=== PATIENT | male | born 1960 | race American Indian/Alaskan Native ===

== ENCOUNTER 2016-11-25 00:25 | Emergency (ER) | payer BC ==
[2016-11-25 00:32] VITALS: BMI 36.9
[2016-11-25 00:38] VITALS: TEMP 99.1
[2016-11-25] MEDS ORDERED: Sodium Chloride 0.9% 1,000 ML IV STA (00:44)
[2016-11-25 01:01] LABS: ADD MANUAL DIFF? NO
--- NOTE | 2016-11-25 01:03 | ED PDOC ---
Arrival/HPI - General Chief Complaint: Dizziness/Lightheaded Time Seen by Provider: 11/25/16 00:35 Historian: Patient - History of Present Illness Narrative History of Present Illness (Text): 11/25/16 00:46 Sylvain Lester is a 56 year old male, with a history of sciatica, presents to the emergency department complaining of sudden onset dizziness, blurred vision, and near syncope. Denies any chest pain, shortness of breath, vomiting, diarrhea , urinary symptoms, or any other complaints at this time. Time/Duration: 1/2 hour Symptom Onset: Sudden Symptom Course: Unchanged Severity Level: Mild Activities at Onset: Light Context: Home Past Medical History - Provider Review Nursing Documentation Reviewed: Yes - Infectious Disease Hx of Infectious Diseases: None - Tetanus Immunization Tetanus Immunization: Unknown - Past Medical History Past Medical History: No Previous - Cardiac Hx Cardiac Disorders: No Hx Hypertension: No - Pulmonary Hx Tuberculosis: No - Neurological HX Cerebrovascular Accident: No Hx Seizures: No Other/Comment: sciatic nerve - HEENT Hx HEENT Disorder: No - Renal Hx Renal Disorder: No - Endocrine/Metabolic Hx Endocrine Disorders: No - Hematological/Oncological Hx Cancer: No - Integumentary Hx Dermatological Disorder: No - Musculoskeletal/Rheumatological Hx Musculoskeletal Disorders: No - Gastrointestinal Hx Gastrointestinal Disorders: No - Genitourinary/Gynecological Hx Sexually Transmitted Diseases: No - Psychiatric Hx Depression: No Hx Emotional Abuse: No Hx Physical Abuse: No Hx Substance Use: Yes (marijuana) - Past Surgical History Past Surgical History: Non-Contributing - Surgical History Hx Musculoskeletal Surgery: No Hx Orthopedic Surgery: Yes (r rotator cuff) - Anesthesia Hx Anesthesia: Yes Hx Anesthesia Reactions: No Hx Malignant Hyperthermia: No - Suicidal Assessment Feels Threatened In Home Enviroment: No Family/Social History - Physician Review Nursing Documentation Reviewed: Yes Family/Social History: No Known Family HX Smoking Status: Current Some Days Smoker Hx Alcohol Use: No Hx Substance Use: Yes (marijuana) Hx Substance Use Treatment: No Allergies/Home Meds Allergies/Adverse Reactions: Allergies No Known Allergies Allergy (Verified 01/25/16 23:29) Home Medications: Home Meds Medication Instructions Recorded Confirmed No Known Home Med 01/25/16 01/25/16 Physical Exam - Physical Exam Narrative Physical Exam (Text): - Review of Systems Constitutional: Normal. absent: Fatigue, Weight Change, Fevers Eyes: Present: Blurred vision. ENT: Normal Respiratory: Normal absent: SOB, Cough, Sputum Cardiovascular: Present: Near Syncope. absent: Chest pain, Palpitations Gastrointestinal: Normal absent: Abdominal pain, Diarrhea, Nausea, Vomiting Genitourinary: Normal. absent: Dysuria, Frequency, Hematuria Musculoskeletal: Normal. absent: Arthralgias, Back Pain, Neck Pain Skin: Normal Neurological: Present: Headache, Dizziness. absent: Focal Weakness Endocrine: Normal Hemo/Lymphatic: Normal Psychiatric: Normal - Physical exam Patient appears age appropriate, speaking full sentences without difficulty - Systems Exam Head: Present: Atraumatic, Normocephalic Pupils: Present: PERRL Extraocular Muscles: Present: EOMI Conjunctiva: Present: Normal Mouth: Present: Moist Mucous Membranes Neck: Present: Normal Range of Motion. No: MIDLINE TENDERNESS, Paraspinal Tenderness Respiratory/Chest: Present: Clear to Auscultation, Good Air Exchange. No: Respiratory Distress, Accessory Muscle Use, Tachypneic Cardiovascular: Present: Regular Rate and Rhythm, Normal S1, S2, Peripheral Pulses Present. No: Murmurs Abdomen: Present: Normal Bowel Sounds, No: Tenderness, Peritoneal Signs, Rebound, Guarding, Distention Back: Present: Normal Inspection. No: Midline Tenderness, Paraspinal Tenderness Upper Extremity: Present: Normal Inspection. No: Cyanosis, Edema Lower Extremity: Present: Normal Inspection. No: Edema Neurological: Present: GCS=15, Speech Normal, cranial nerves II through XII fully intact with no cerebellar abnormality, neuro-sensory fully intact. No focal neurological deficits. Skin: Present: Warm, Dry, Normal Color. No: Rashes Lymphatic: Present: OX3, NI, NC Psychiatric: Present: Alert, Oriented x 3, Normal Insight, Normal Concentration Vital Signs Reviewed: Yes Vital Signs Temp Pulse Resp BP Pulse Ox 11/25/16 00:32 99.1 F 102 H 20 150/90 97 Temperature: Afebrile Blood Pressure: Normal Pulse: Tachycardic Respiratory Rate: Normal Appearance: Positive for: Well-Appearing, Non-Toxic, Comfortable Pain Distress: None Mental Status: Positive for: Alert and Oriented X 3 Finger Stick Blood Glucose: 124 Medical Decision Making ED Course and Treatment: 11/25/16 00:49 Impression: A 56 year old male who presents to the emergency department complaining of sudden onset dizziness, blurred vision and near syncope. Patient has no focal neurological deficits on examination and is well-appearing Plan: -- EKG -- CT Head -- Labs, cardiac enzymes -- Chest X-ray -- Antivert -- IV fluids -- Urinalysis -- Reassess and disposition Progress Notes: EKG interpreted by me: NSR @ 99 bpm. PVCs. Inferior Q waves. No ST-segment elevations. CT Head Without Intravenous Contrast interpreted by Laurie Talbot MD FINDINGS: Brain: Unremarkable. No hemorrhage. No significant white matter disease. No edema. Ventricles: Unremarkable. No ventriculomegaly. Bones/joints: Unremarkable. No acute fracture. Soft tissues: Unremarkable. Vasculature: Atherosclerosis of the cavernous carotid arteries Sinuses: Unremarkable as visualized. No acute sinusitis. Mastoid air cells: Unremarkable as visualized. No mastoid effusion. Orbits: Nonspecific bilateral proptosis without induration, engorged superior ophthalmic veins or definite enlargement of the extraocular muscles. IMPRESSION:No hemorrage, mass effect or subacute territorial infarction CT can miss an acute nonhemorrhagic CVA. Acute strokes may be initially radiologically occult on CT. If the patient is having persistent stroke like symptomatology, then MRI may be beneficial. No acute findings. Chest X-ray interpreted by me: No cardiomegaly, no pneumothorax, no effusion, no infiltrates. 11/25/16 02:06 On reevaluation, patient states that he feels slightly better. I advised that patient be admitted into the hospital for further workup of his condition The patient refuses admission and wishes to leave the Emergency Department against my medical advice. Patient was told that admission to the hospital is necessary and a full explanation of the reasons why was given, and understood by patient. The risks of leaving were explained and include worsening of condition, and permanent disability and from an undiagnosed or untreated condition. The patient accepts these risks, and is in my judgment is competent and capable of understanding the clinical situation and my explanation of the risks of leaving. Patient was given the opportunity to ask questions and change mind. The patient was instructed regarding the best care for the present symptoms, and to follow up with your primary physician as soon as possible, or return to the Emergency Department at any time for continuing care. - Lab Interpretations Lab Results: 11/25/16 00:42 11/25/16 00:42 Lab Results 11/25/16 00:42: WBC 6.4 D, RBC 4.59, Hgb 13.7 L, Hct 38.2 L, MCV 83.2, MCH 29.8 , MCHC 35.9, RDW 12.7, Plt Count 244, MPV 9.5, Gran % 45.6 L, Lymph % (Auto) 39.9 H, [place] % (Auto) 12.7 H, Eos % (Auto) 1.6, Baso % (Auto) 0.2, Gran # 2.92, Lymph # 2.6, [place] # 0.8 H, Eos # 0.1, Baso # 0.01, PT 11.7, INR 1.08, APTT 30.3 , Sodium 139, Potassium 3.8, Chloride 104, Carbon Dioxide 25, Anion Gap 14, BUN 21, Creatinine 1.0, Est GFR ( Amer) > 60, Est GFR (Non-Af Amer) > 60, Random Glucose 113 H, Calcium 9.2, Total Bilirubin 0.5, AST 54, ALT 62 H, Alkaline Phosphatase 62, Lactate Dehydrogenase 560, Total Creatine Kinase 1131 H , CK-MB (CK-2) 5.0 H, CK-MB (CK-2) % 0.4 L, Troponin I < 0.01, Total Protein 7.1 , Albumin 3.8, Globulin 3.3, Albumin/Globulin Ratio 1.2 11/25/16 00:31: POC Glucose (mg/dL) 125 H - RAD Interpretation Radiology Orders: 11/25/16 00:45 HEAD W/O CONTRAST [CT] Stat 11/25/16 00:46 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 [RAD] Stat - Medication Orders Current Medication Orders: Discontinued Medications Sodium Chloride (Sodium Chloride 0.9%) 1,000 mls @ 1,000 mls/hr IV .Q1H STA Stop: 11/25/16 01:43 Last Admin: 11/25/16 01:16 Dose: 1,000 MLS/HR eMAR Start Stop Document 11/25/16 01:16 SB (Rec: 11/25/16 01:16 SB [id number]) Intravenous Solution Start Date 11/25/16 Start Time 01:16 End Date 11/25/16 Meclizine HCl (Antivert) 25 mg PO STAT STA Stop: 11/25/16 00:46 Last Admin: 11/25/16 01:16 Dose: 25 MG - Scribe Statement The provider has reviewed the documentation as recorded by the Ashleye Earle Davis Provider Attestation: All medical record entries made by the Leticiaibe were at my direction and personally dictated by me. I have reviewed the chart and agree that the record accurately reflects my personal performance of the history, physical exam, medical decision making, and the department course for this patient. I have also personally directed, reviewed, and agree with the discharge instructions and disposition. Disposition/Present on Arrival - Present on Arrival Any Indicators Present on Arrival: No History of DVT/PE: No History of Uncontrolled Diabetes: No Urinary Catheter: No History of Decub. Ulcer: No History Surgical Site Infection Following: None - Disposition Have Diagnosis and Disposition been Completed?: Yes Diagnosis: Near syncope Disposition: AGAINST MEDICAL ADVICE Disposition Time: 02:09 Patient Plan: Discharge Patient Problems: Current Active Problems Problem Status Diagnosed Near syncope Acute Condition: GUARDED Discharge Instructions (ExitCare): Near Syncope (ED) Additional Instructions: PLEASE RETURN TO THE EMERGENCY DEPARTMENT FOR NEW OR WORSENING SYMPTOMS. RETURN RIGHT AWAY IF YOU CANNOT FOLLOW UP WITH YOUR PRIMARY CARE DOCTOR, CLINIC, OR SPECIALIST IN 1-2 DAYS. Referrals: Severo Cardenas MD [Staff Provider] - Follow up with primary Dain Ring MD [Staff Provider] - Follow up with primary Deysi Cochran MD [Staff Provider] - Follow up with primary Otto Otoole MD [Staff Provider] - Follow up with primary Sandor Otoole MD [Staff Provider] - Follow up with primary
[2016-11-25 01:05] LABS: BASO # 0.01 K/mm3 (0.0-2.0); BASO % 0.2 % (0.0-3.0); EOS # 0.1 (0.0-0.7); EOS % 1.6 % (1.5-5.0); GRAN # 2.92 (1.4-6.5); GRAN % 45.6 % (50.0-68.0); HEMATOCRIT 38.2 % (42.0-52.0); LYMPH # 2.6 (1.2-3.4); LYMPH % 39.9 % (22.0-35.0); MEAN CELL VOLUME 83.2 fL (80.0-105.0); MEAN CORPUSCULAR HEMOGLOBIN 29.8 pg (25.0-35.0); MEAN CORPUSCULAR HGB CONC 35.9 g/dl (31.0-37.0); MEAN PLATELET VOLUME 9.5 fl (7.0-11.0); MONO # 0.8 (0.1-0.6); MONO % 12.7 % (1.0-6.0); PLATELET COUNT 244 10^3/uL (120.0-450.0); RED CELL DISTRIBUTION WIDTH 12.7 % (11.5-14.5); WHITE BLOOD COUNT 6.4 10^3/ul (4.5-11.0)
[2016-11-25 01:15] LABS: ALB/GLOB RATIO 1.2 (1.1-1.8); ALKALINE PHOSPHATASE 62 U/L (38-133); ALT/SGPT 62 U/L (7-56); AST/SGOT 54 U/L (15-59); BILIRUBIN,TOTAL 0.5 mg/dL (0.2-1.3); BLOOD UREA NITROGEN 21 mg/dL (7-21); CALCIUM 9.2 mg/dL (8.4-10.5); CARBON DIOXIDE 25 mmol/L (21-33); CHLORIDE 104 mmol/L (98-107); GFR AFRICAN-AMERICAN > 60; GLUCOSE,RANDOM 113 mg/dL (70-110); POTASSIUM 3.8 mmol/L (3.6-5.0); SODIUM 139 mmol/L (132-148); TOTAL PROTEIN 7.1 g/dL (5.8-8.3)
[2016-11-25 01:47] LABS: TROPONIN I < 0.01 ng/mL
[2016-11-25 01:51] LABS: INR 1.08 (0.93-1.08); PARTIAL THROMBOPLASTIN TIME 30.3 Seconds (23.7-30.8)
[2016-11-25 02:26] VITALS: BP 133/81; PULSE 88; RESP 18; O2SAT 95
--- NOTE | 2016-11-25 07:17 | RAD ---
HISTORY: cough COMPARISON: Chest x-ray performed 09/25/14 TECHNIQUE: Chest, one view. FINDINGS: Examination limited by habitus and hypoinflation. LUNGS: No focal consolidation. Please note that chest x-ray has limited sensitivity for the detection of pulmonary masses. PLEURA: No significant pleural effusion identified. No definite pneumothorax . CARDIOVASCULAR: The cardiomediastinal silhouette appears within normal limits of size. OSSEOUS STRUCTURES: No acute osseous abnormality identified. VISUALIZED UPPER ABDOMEN: Unremarkable. OTHER FINDINGS: None. IMPRESSION: No focal consolidation, significant pleural effusion, or definite pneumothorax identified.
--- NOTE | 2016-11-25 07:40 | CT ---
PROCEDURE: CT HEAD WITHOUT CONTRAST. HISTORY: near syncope COMPARISON: None available. TECHNIQUE: Axial computed tomography images were obtained through the head/brain without intravenous contrast. Radiation dose: Total exam DLP = 733.46 mGy-cm. This CT exam was performed using one or more of the following dose reduction techniques: Automated exposure control, adjustment of the mA and/or kV according to patient size, and/or use of iterative reconstruction technique. FINDINGS: HEMORRHAGE: No intracranial hemorrhage. BRAIN: No mass effect or edema. Intracranial atherosclerotic calcifications. No atrophy or chronic microvascular ischemic changes.Please note that MRI with diffusion imaging is more sensitive in the detection of acute ischemic event. VENTRICLES: No hydrocephalus. CALVARIUM: Unremarkable. PARANASAL SINUSES: Unremarkable as visualized. No significant inflammatory changes. MASTOID AIR CELLS: Unremarkable as visualized. No inflammatory changes. OTHER FINDINGS: Nonspecific bilateral proptosis. IMPRESSION: No acute intracranial pathology identified. Incidental findings as above. Preliminary impression was provided by virtual radiologic.
--- NOTE | 2016-11-25 13:30 | CARD ---
APPROVED REPORT EKG Measurement Heart [id number] <Conclusion> Sinus rhythm with occasional premature ventricular complexes and fusion complexes Inferior infarct, age undetermined Anterior infarct, age undetermined Abnormal ECG
== END 2016-11-25 02:20 | disposition left against medical advice (07) ==
LOC: ED 00:25
DX: R55 Syncope and collapse (principal)
CPT/HCPCS: 70450; 71010; 80053; 82550; 82553; 82948; 83615; 84484; 85025; 85610; 85730; 93005; 99285; J7040

== ENCOUNTER 2017-04-09 23:38 | Emergency (ER) | payer BC ==
[2017-04-09 23:48] VITALS: BP 132/95; PULSE 71; TEMP 98.1; BMI 35.9
[2017-04-09] MEDS ORDERED: Amoxicillin-Clav 875-125 mg Tab PO STA (23:57)
--- NOTE | 2017-04-10 00:01 | ED PDOC ---
Arrival/HPI - General Chief Complaint: Cough, Cold, Congestion Time Seen by Provider: 04/09/17 23:57 Historian: Patient - History of Present Illness Narrative History of Present Illness (Text): 04/09/17 23:58 56 y/o male, pmh including hyperlipidemia, smoker, c/o nasal congestion and coughing x 2 days. Nasal congestion, productive coughing, no chest pain or shortness of breath, no night sweat, no dizziness, no palpitation, no other medical or psychological complaints. Past Medical History - Provider Review Nursing Documentation Reviewed: Yes - Infectious Disease Hx of Infectious Diseases: None - Tetanus Immunization Tetanus Immunization: Unknown - Past Medical History Past Medical History: No Previous - Cardiac Hx Cardiac Disorders: No Hx Hypertension: No - Pulmonary Hx Respiratory Disorders: No Hx Tuberculosis: No - Neurological HX Cerebrovascular Accident: No Hx Seizures: No Other/Comment: sciatic nerve - HEENT Hx HEENT Disorder: No - Renal Hx Renal Disorder: No - Endocrine/Metabolic Hx Endocrine Disorders: No - Hematological/Oncological Hx Cancer: No - Integumentary Hx Dermatological Disorder: No - Musculoskeletal/Rheumatological Hx Musculoskeletal Disorders: No - Gastrointestinal Hx Gastrointestinal Disorders: No - Genitourinary/Gynecological Hx Sexually Transmitted Diseases: No - Psychiatric Hx Depression: No Hx Emotional Abuse: No Hx Physical Abuse: No Hx Substance Use: Yes (marijuana) - Past Surgical History Past Surgical History: Non-Contributing - Surgical History Hx Musculoskeletal Surgery: No Hx Orthopedic Surgery: Yes (r rotator cuff) - Anesthesia Hx Anesthesia: Yes Hx Anesthesia Reactions: No Hx Malignant Hyperthermia: No - Suicidal Assessment Feels Threatened In Home Enviroment: No Family/Social History - Physician Review Nursing Documentation Reviewed: Yes Family/Social History: Unknown Family HX Smoking Status: Current Some Days Smoker Hx Alcohol Use: No Hx Substance Use: Yes (marijuana) Hx Substance Use Treatment: No Allergies/Home Meds Allergies/Adverse Reactions: Allergies No Known Allergies Allergy (Verified 04/09/17 23:48) Review of Systems - Review of Systems Constitutional: absent: Fatigue, Fevers Eyes: absent: Vision Changes ENT: Rhinorrhea, Sinus Congestion. absent: Hearing Changes, Voice Changes, Sore Throat Respiratory: Cough, Sputum. absent: SOB, Wheezing Cardiovascular: absent: Chest Pain Gastrointestinal: absent: Abdominal Pain, Nausea, Vomiting Skin: absent: Rash, Pruritis Neurological: absent: Headache, Dizziness Physical Exam Vital Signs Reviewed: Yes Vital Signs Temp Pulse Resp BP Pulse Ox 04/09/17 23:49 98.1 F 71 18 98 04/09/17 23:47 98.1 F 71 18 132/95 H 98 Temperature: Afebrile Blood Pressure: Normal Pulse: Regular Respiratory Rate: Normal Appearance: Positive for: Well-Appearing, Non-Toxic, Comfortable Pain Distress: None Mental Status: Positive for: Alert and Oriented X 3 - Systems Exam Head: Present: Atraumatic, Normocephalic Pupils: Present: PERRL Extroacular Muscles: Present: EOMI Conjunctiva: Present: Normal Ears: Present: NORMAL TM, Normal Canal. No: Erythema Mouth: Present: Moist Mucous Membranes Pharnyx: No: ERYTHEMA, EXUDATE, TONSILS ENLARGED Nose (External): Present: Other (+ttp on the lt. maxillary sinus region with no facial swelling. ) Nose (Internal): Present: No Active Bleeding, Rhinorrhea. No: Moist, Edematous , Septal Deviation, Septal Hematoma, Epistaxis Neck: Present: Normal Range of Motion Respiratory/Chest: Present: Clear to Auscultation, Good Air Exchange. No: Respiratory Distress, Accessory Muscle Use, Wheezes, Decreased Breath Sounds, Rales, Retracting, Rhonchi, Tachypneic, Tender to Palpation Cardiovascular: Present: Regular Rate and Rhythm, Normal S1, S2, Other (no pedal edema). No: Murmurs Abdomen: Present: Normal Bowel Sounds. No: Tenderness, Distention, Peritoneal Signs Back: Present: Normal Inspection Upper Extremity: Present: Normal Inspection. No: Cyanosis, Edema Lower Extremity: Present: Normal Inspection. No: Edema Neurological: Present: GCS=15, CN II-XII Intact, Speech Normal Skin: Present: Warm, Dry, Normal Color. No: Rashes Psychiatric: Present: Alert, Oriented x 3, Normal Insight, Normal Concentration Medical Decision Making ED Course and Treatment: 04/10/17 00:02 -augmentin and benadryl -Discharge home with flonase, augmentin, claritin d24, motrin, stay hydrated, bed rest, follow up with your own pmd within 2 days, return to the ER for any new or worsening signs or symptoms. - PA / OIL EXTRACTOR / Resident Statement MD/DO has reviewed & agrees with the documentation as recorded. Disposition/Present on Arrival - Present on Arrival Any Indicators Present on Arrival: No History of DVT/PE: No History of Uncontrolled Diabetes: No Urinary Catheter: No History of Decub. Ulcer: No History Surgical Site Infection Following: None - Disposition Have Diagnosis and Disposition been Completed?: Yes Diagnosis: Sinusitis Disposition: HOME/ ROUTINE Disposition Time: 00:03 Patient Plan: Discharge Condition: GOOD Additional Instructions: -Discharge home with flonase, augmentin, claritin d24, motrin, stay hydrated, bed rest, follow up with your own pmd within 2 days, return to the ER for any new or worsening signs or symptoms. Prescriptions: Amoxicillin/Clavulanate [Augmentin 875 MG-125 MG] 1 tab PO BID #14 tab Benzonatate [Tessalon Perles] 100 mg PO TID #30 sgl Fluticasone Nasal [Flonase] 2 spr NS DAILY #1 spr Loratadine/Pseudoephedrine [Claritin-D 24 Hour Tablet] 1 each PO DAILY #7 tab.er.24h Referrals: Olman Armijo DO [Staff Provider] - Follow up with primary Forms: [employer] (Malagasy), WORK NOTE
[2017-04-10 00:19] VITALS: RESP 17; O2SAT 99
== END 2017-04-10 00:19 | disposition home or self-care (01) ==
LOC: ED 23:38
DX: J32.9 Chronic sinusitis, unspecified (principal); E78.5 Hyperlipidemia, unspecified; F17.210 Nicotine dependence, cigarettes, uncomplicated

== ENCOUNTER 2017-08-03 09:04 | Emergency (ER) | payer BC ==
[2017-08-03 09:08] VITALS: BMI 38.2
[2017-08-03 09:14] VITALS: RESP 18
--- NOTE | 2017-08-03 09:36 | ED PDOC ---
Arrival/HPI - General Chief Complaint: Cough, Cold, Congestion Time Seen by Provider: 08/03/17 09:28 Historian: Patient - History of Present Illness Narrative History of Present Illness (Text): 08/03/17 09:36 Sylvain Lester is a 56 year old male, whose past medical history includes hyperlipidemia, smoker, complaining of congestion and coughing for past few weeks. Patient informs similar symptoms from past episode of diagnosed sinusitis. Patient informs mild cough, sore throat, "feel hot", and yellow mucus. Patient denies any chest pain, shortness of breath, abdominal pain, fever , dizziness, palpitation or any other complaints. Time/Duration: > week Symptom Onset: Gradual Symptom Course: Unchanged Activities at Onset: Light Context: Home Past Medical History - Provider Review Nursing Documentation Reviewed: Yes - Infectious Disease Hx of Infectious Diseases: None - Tetanus Immunization Tetanus Immunization: Unknown - Past Medical History Past Medical History: No Previous - Cardiac Hx Cardiac Disorders: No Hx Hypertension: No - Pulmonary Hx Respiratory Disorders: No Hx Tuberculosis: No - Neurological HX Cerebrovascular Accident: No Hx Seizures: No Other/Comment: sciatic nerve - HEENT Hx HEENT Disorder: No - Renal Hx Renal Disorder: No - Endocrine/Metabolic Hx Endocrine Disorders: No - Hematological/Oncological Hx Cancer: No - Integumentary Hx Dermatological Disorder: No - Musculoskeletal/Rheumatological Hx Musculoskeletal Disorders: No - Gastrointestinal Hx Gastrointestinal Disorders: No - Genitourinary/Gynecological Hx Sexually Transmitted Diseases: No - Psychiatric Hx Depression: No Hx Emotional Abuse: No Hx Physical Abuse: No Hx Substance Use: Yes (marijuana) - Past Surgical History Past Surgical History: Non-Contributing - Surgical History Hx Musculoskeletal Surgery: No Hx Orthopedic Surgery: Yes (r rotator cuff) - Anesthesia Hx Anesthesia: Yes Hx Anesthesia Reactions: No Hx Malignant Hyperthermia: No - Suicidal Assessment Feels Threatened In Home Enviroment: No Family/Social History - Physician Review Nursing Documentation Reviewed: Yes Family/Social History: Unknown Family HX Smoking Status: Current Some Days Smoker Hx Alcohol Use: No Hx Substance Use: Yes (marijuana) Hx Substance Use Treatment: No Allergies/Home Meds Allergies/Adverse Reactions: Allergies No Known Allergies Allergy (Verified 04/09/17 23:48) Review of Systems - Physician Review All systems were reviewed & negative as marked: Yes - Review of Systems Constitutional: Normal. absent: Fevers Eyes: Normal ENT: Sore Throat, Sinus Congestion (yellow mucus ) Respiratory: Cough (mild cough ). absent: SOB Cardiovascular: Normal. absent: Chest Pain, Palpitations Gastrointestinal: Normal. absent: Abdominal Pain Genitourinary Male: Normal Musculoskeletal: Normal Skin: Normal Neurological: Normal. absent: Dizziness Endocrine: Normal Hemo/Lymphatic: Normal Psychiatric: Normal Physical Exam Vital Signs Reviewed: Yes Vital Signs Temp Pulse Resp BP Pulse Ox 08/03/17 10:29 98.6 F 78 18 128/78 100 08/03/17 10:14 76 18 128/78 97 08/03/17 09:04 98.4 F 84 18 134/82 98 Temperature: Afebrile Blood Pressure: Normal Pulse: Regular Respiratory Rate: Normal Appearance: Positive for: Well-Appearing, Non-Toxic, Comfortable Pain Distress: None Mental Status: Positive for: Alert and Oriented X 3 Medical Decision Making ED Course and Treatment: 08/03/17 09:36 Impression: 56 year old male presents to the Emergency department for nasal congestion and coughing for few weeks. Plan: -- Chest X-ray -- Influenza Vaccine -- Reassess and disposition Prior Visits: Notes and results from previous visits were reviewed. On 04/09/17 patient was seen in the emergency department for nasal congestion and coughing. Patient was treated for sinusitis and discharged home with instructions. Progress Notes: 08/03/17 11:27 pt reassesed cxr neg. pt states feels well for dc. will dc with antibiotics for sinusitis. advise outpt fu and return precautions. - Lab Interpretations Lab Results: Lab Results 08/03/17 09:44: Influenza Typ A,B (EIA) Negative for flu a/b - RAD Interpretation Radiology Orders: 08/03/17 09:34 CXR [CHEST TWO VIEWS (PA/LAT)] [RAD] Stat - Scribe Statement The provider has reviewed the documentation as recorded by the Scribe Tres Newell. All medical record entries made by the Scribe were at my direction and personally dictated by me. I have reviewed the chart and agree that the record accurately reflects my personal performance of the history, physical exam, medical decision making, and the department course for this patient. I have also personally directed, reviewed, and agree with the discharge instructions and disposition. Disposition/Present on Arrival - Present on Arrival Any Indicators Present on Arrival: No History of DVT/PE: No History of Uncontrolled Diabetes: No Urinary Catheter: No History of Decub. Ulcer: No History Surgical Site Infection Following: None - Disposition Have Diagnosis and Disposition been Completed?: Yes Diagnosis: Sinusitis Disposition: HOME/ ROUTINE Disposition Time: 11:00 Condition: STABLE Discharge Instructions (ExitCare): Sinusitis (ED) Additional Instructions: follow up in clinic and with specialist. you may need further diagnositc workup. return to er with worsening symptoms or concerns. Prescriptions: Amoxicillin/Clavulanate [Augmentin 875 MG-125 MG] 1 tab PO BID #20 tab Referrals: [facility] [Outside] - Follow up with primary [facility] [Outside] - Follow up with primary Olman Armijo DO [Staff Provider] - Follow up with primary Forms: [employer] (German), WORK NOTE
[2017-08-03 10:16] VITALS: BP 128/78
[2017-08-03 10:36] VITALS: PULSE 78; TEMP 98.6; O2SAT 100
--- NOTE | 2017-08-03 11:18 | RAD ---
HISTORY: cough COMPARISON: 02/28/2017 TECHNIQUE: Chest PA and lateral FINDINGS: LUNGS: No active pulmonary disease. PLEURA: No significant pleural effusion identified. No pneumothorax apparent. CARDIOVASCULAR: Normal. OSSEOUS STRUCTURES: No significant abnormalities. VISUALIZED UPPER ABDOMEN: Normal. OTHER FINDINGS: None. IMPRESSION: No active disease.
== END 2017-08-03 11:16 | disposition home or self-care (01) ==
LOC: ED 09:04
DX: J32.9 Chronic sinusitis, unspecified (principal); F17.210 Nicotine dependence, cigarettes, uncomplicated

== ENCOUNTER 2017-09-20 20:11 | Emergency (ER) | payer BC ==
[2017-09-20 20:15] VITALS: BMI 38.7
[2017-09-20 20:47] LABS: BASO # 0.01 K/mm3 (0.0-2.0); BASO % 0.2 % (0.0-3.0); EOS # 0.1 (0.0-0.7); EOS % 1.3 % (1.5-5.0); GRAN # 2.55 (1.4-6.5); GRAN % 47.1 % (50.0-68.0); HEMOGLOBIN 13.3 g/dL (14.0-18.0); LYMPH # 2.3 (1.2-3.4); LYMPH % 42.7 % (22.0-35.0); MEAN CELL VOLUME 85.6 fl (80.0-105.0); MEAN CORPUSCULAR HGB CONC 33.9 g/dl (31.0-37.0); MEAN PLATELET VOLUME 9.5 fl (7.0-11.0); MONO # 0.5 (0.1-0.6); MONO % 8.7 % (1.0-6.0); RBC 4.58 10^6/uL (3.5-6.1); RED CELL DISTRIBUTION WIDTH 13.3 % (11.5-14.5); WHITE BLOOD COUNT 5.4 10^3/ul (4.5-11.0)
[2017-09-20 20:53] LABS: ALB/GLOB RATIO 1.3 (1.1-1.8); ALBUMIN 3.8 g/dL (3.0-4.8); ALT/SGPT 41 U/L (7-56); AST/SGOT 30 U/L (17-59); BLOOD UREA NITROGEN 18 mg/dL (7-21); CALCIUM 9.5 mg/dL (8.4-10.5); GFR AFRICAN-AMERICAN > 60; GFR NON-AFRICAN AMERICAN > 60; MAGNESIUM 1.9 mg/dL (1.7-2.2)
[2017-09-20 21:03] LABS: TROPONIN I < 0.01 ng/mL
[2017-09-20 21:11] LABS: INR 1.18 (0.93-1.08); PARTIAL THROMBOPLASTIN TIME 32.3 Seconds (25.1-36.5); PROTHROMBIN TIME 13.5 SECONDS (9.4-12.5)
[2017-09-20 21:14] LABS: CK-MB 3.3 ng/mL (0.0-3.6)
--- NOTE | 2017-09-20 21:22 | ED PDOC ---
Arrival/HPI - General Chief Complaint: Chest Pain Time Seen by Provider: 09/20/17 20:12 Historian: Patient - History of Present Illness Narrative History of Present Illness (Text): 09/20/17 21:21 Sylvain Lester is a 56 year old male smoker, whose past medical history includes hyperlipidemia, who presents to the Emergency department brought in by EMS complaining of chest pain prior to arrival. Patient was administered aspirin and nitroglycerin en route to the hospital by EMS with relief. Patient reports a family history of cardiac disease. Patient denies any fever, chills, shortness of breath, nausea, vomiting, diarrhea, urinary symptoms, back pain, neck pain, headache, dizziness, or any other complaints. Symptom Onset: Gradual Symptom Course: Unchanged Activities at Onset: Light Context: Home Past Medical History - Provider Review Nursing Documentation Reviewed: Yes - Infectious Disease Hx of Infectious Diseases: None - Tetanus Immunization Tetanus Immunization: Unknown - Past Medical History Past Medical History: No Previous - Cardiac Hx Cardiac Disorders: No Hx Hypertension: No - Pulmonary Hx Respiratory Disorders: No Hx Tuberculosis: No - Neurological HX Cerebrovascular Accident: No Hx Seizures: No Other/Comment: sciatic nerve - HEENT Hx HEENT Disorder: No - Renal Hx Renal Disorder: No - Endocrine/Metabolic Hx Endocrine Disorders: No - Hematological/Oncological Hx Cancer: No - Integumentary Hx Dermatological Disorder: No - Musculoskeletal/Rheumatological Hx Musculoskeletal Disorders: No - Gastrointestinal Hx Gastrointestinal Disorders: No - Genitourinary/Gynecological Hx Sexually Transmitted Diseases: No - Psychiatric Hx Depression: No Hx Emotional Abuse: No Hx Physical Abuse: No Hx Substance Use: Yes (marijuana) - Past Surgical History Past Surgical History: Non-Contributing - Surgical History Hx Musculoskeletal Surgery: No Hx Orthopedic Surgery: Yes (r rotator cuff) Other/Comment: back surgery - Anesthesia Hx Anesthesia: Yes Hx Anesthesia Reactions: No Hx Malignant Hyperthermia: No - Suicidal Assessment Feels Threatened In Home Enviroment: No Family/Social History - Physician Review Nursing Documentation Reviewed: Yes Family/Social History: Unknown Family HX Smoking Status: Current Some Days Smoker Hx Alcohol Use: Yes Frequency of alcohol use: Socially Hx Substance Use: Yes (marijuana) Hx Substance Use Treatment: No Allergies/Home Meds Allergies/Adverse Reactions: Allergies No Known Allergies Allergy (Verified 09/20/17 20:28) Home Medications: Home Meds Medication Instructions Recorded Confirmed No Known Home Med 09/20/17 09/20/17 Review of Systems - Physician Review All systems were reviewed & negative as marked: Yes - Review of Systems Constitutional: Normal. absent: Fevers Eyes: Normal ENT: Normal Respiratory: Normal. absent: SOB, Cough Cardiovascular: Chest Pain Gastrointestinal: Normal. absent: Abdominal Pain, Diarrhea, Nausea, Vomiting Genitourinary Male: Normal. absent: Dysuria, Frequency, Hematuria, Urinary Output Changes Musculoskeletal: Normal. absent: Back Pain, Neck Pain Skin: Normal. absent: Rash Neurological: Normal. absent: Headache, Dizziness Endocrine: Normal Hemo/Lymphatic: Normal Psychiatric: Normal Physical Exam Vital Signs Reviewed: Yes Vital Signs Temp Pulse Resp BP Pulse Ox 09/20/17 21:33 98.1 F 79 17 138/79 98 09/20/17 20:19 97.5 F L 75 18 146/73 99 Temperature: Afebrile Blood Pressure: Normal Pulse: Regular Respiratory Rate: Normal Appearance: Positive for: Well-Appearing, Non-Toxic, Comfortable Pain Distress: None Mental Status: Positive for: Alert and Oriented X 3 - Systems Exam Head: Present: Atraumatic, Normocephalic Pupils: Present: PERRL Extroacular Muscles: Present: EOMI Conjunctiva: Present: Normal Mouth: Present: Moist Mucous Membranes Neck: Present: Normal Range of Motion Respiratory/Chest: Present: Clear to Auscultation, Good Air Exchange. No: Respiratory Distress, Accessory Muscle Use Cardiovascular: Present: Regular Rate and Rhythm, Normal S1, S2. No: Murmurs Abdomen: Present: Normal Bowel Sounds. No: Tenderness, Distention, Peritoneal Signs Back: Present: Normal Inspection Upper Extremity: Present: Normal Inspection. No: Cyanosis, Edema Lower Extremity: Present: Normal Inspection. No: Edema Neurological: Present: GCS=15, CN II-XII Intact, Speech Normal Skin: Present: Warm, Dry, Normal Color. No: Rashes Psychiatric: Present: Alert, Oriented x 3, Normal Insight, Normal Concentration Medical Decision Making ED Course and Treatment: 09/20/17 20:20 Impression: 56 year old male complaining of chest pain tonight. Plan: -- EKG -- Chest X-ray -- Labs, cardiac enzymes -- UA -- Reassess and disposition Prior Visits: Notes and results from previous visits were reviewed. Progress Notes: Reviewed EKG, NSR at 74 bpm[address] Non-specific ST/T wave changes. 09/20/17 21:00 Chest X-ray reviewed, shows no acute processes. 09/20/17 21:20 Discussed results and plan with pt. Pt was offered admission to the hospital for further evaluation of symptoms. Pt refusing to stay and will sign out against medical advice. Leaving Against Medical Advice (AMA): The patient is choosing to leave against medical advice. I have personally explained to the patient that choosing to do so may result in permanent bodily harm or . I have discussed at great length that without further evaluation and monitoring there may be unforeseen circumstances and/or deterioration causing permanent bodily harm or as a result of their choice. The patient is alert, oriented, and shows the mental capacity to make clear decisions regarding the patients health care at this time. The patient continues to wish to leave against medical advice. In light of the patients decision to leave against medical advice, follow-up has been arranged and the patient is aware of the importance to following up as instructed. The patient has been advised that they should return to the emergency room immediately if they change their mind at any time, or if their condition begins to change or worsen in any way.. - Lab Interpretations Lab Results: 09/20/17 20:25 09/20/17 20:25 Lab Results 09/20/17 20:25: Sodium 141, Potassium 3.5 L, Chloride 105, Carbon Dioxide 26, Anion Gap 14, BUN 18, Creatinine 1.0, Est GFR ( Amer) > 60, Est GFR (Non- Af Amer) > 60, Random Glucose 135 H, Calcium 9.5, Magnesium 1.9, Total Bilirubin 0.3, AST 30, ALT 41, Alkaline Phosphatase 56, Lactate Dehydrogenase 488, Total Creatine Kinase 288 H, CK-MB (CK-2) 3.3, CK-MB (CK-2) % Cancelled, Troponin I < 0.01, Total Protein 6.7, Albumin 3.8, Globulin 2.9, Albumin/ Globulin Ratio 1.3 09/20/17 20:25: PT 13.5 H, INR 1.18 H, APTT 32.3 09/20/17 20:25: WBC 5.4, RBC 4.58, Hgb 13.3 L, Hct 39.2 L, MCV 85.6, MCH 29.0, MCHC 33.9, RDW 13.3, Plt Count 192, MPV 9.5, Gran % 47.1 L, Lymph % (Auto) 42.7 H, [place] % (Auto) 8.7 H, Eos % (Auto) 1.3 L, Baso % (Auto) 0.2, Gran # 2.55, Lymph # (Auto) 2.3, [place] # (Auto) 0.5, Eos # (Auto) 0.1, Baso # (Auto) 0.01 I have reviewed the lab results: Yes - RAD Interpretation Radiology Orders: 09/20/17 20:22 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 [RAD] Stat Medical Referral Coordinator: ED Physician - EKG Interpretation Interpreted by ED Physician: Yes Type: 12 lead EKG - Scribe Statement The provider has reviewed the documentation as recorded by the Leticiaibnatalie Hernandez Provider Scribe Attestation: All medical record entries made by the Scribe were at my direction and personally dictated by me. I have reviewed the chart and agree that the record accurately reflects my personal performance of the history, physical exam, medical decision making, and the department course for this patient. I have also personally directed, reviewed, and agree with the discharge instructions and disposition. Disposition/Present on Arrival - Present on Arrival Any Indicators Present on Arrival: No History of DVT/PE: No History of Uncontrolled Diabetes: No Urinary Catheter: No History of Decub. Ulcer: No History Surgical Site Infection Following: None - Disposition Have Diagnosis and Disposition been Completed?: Yes Diagnosis: Chest pain Disposition: AGAINST MEDICAL ADVICE Disposition Time: 21:30 Condition: UNKNOWN Discharge Instructions (ExitCare): Chest Pain (ED) Referrals: PCP,NO [Primary Care Provider] - Follow up with primary Forms: [employer] (Kinyarwanda)
[2017-09-20 21:35] VITALS: BP 138/79; PULSE 79; RESP 17; TEMP 98.1; O2SAT 98
--- NOTE | 2017-09-21 09:21 | RAD ---
HISTORY: Chest pain COMPARISON: No prior. FINDINGS: LUNGS: The lungs are well inflated and clear. PLEURA: No significant pleural effusion identified, no pneumothorax apparent. CARDIOVASCULAR: Normal. OSSEOUS STRUCTURES: No significant abnormalities. VISUALIZED UPPER ABDOMEN: Normal. OTHER FINDINGS: None. IMPRESSION: No active pulmonary disease.
--- NOTE | 2017-09-21 10:26 | CARD ---
APPROVED REPORT EKG Measurement Heart [id number] [place] 222P51 [id number] <Conclusion> Sinus rhythm with 1st degree AV block with occasional premature ventricular complex Possible inferior infarct, old QS in V 1, possible septal ME, old No change except 1st degree AVB now.
== END 2017-09-20 21:35 | disposition left against medical advice (07) ==
LOC: ED 20:11
DX: R07.9 Chest pain, unspecified (principal); E78.5 Hyperlipidemia, unspecified

== ENCOUNTER 2017-10-03 10:31 | Emergency (ER) | payer BC ==
[2017-10-03 10:31] VITALS: BMI 38.7
[2017-10-03 10:39] VITALS: RESP 18; TEMP 98.4
--- NOTE | 2017-10-03 10:51 | ED PDOC ---
Arrival/HPI - General Chief Complaint: Chest Pain Time Seen by Provider: 10/03/17 10:42 Historian: Patient - History of Present Illness Narrative History of Present Illness (Text): 10/03/17 10:48 A 57 year old male presents to the emergency department complaining of mild chest discomfort earlier today. Patient believes his pain is associated to stress. He notes his pain began after receiving a call from his grandson's school. On evaluation, patient states his pain has improved. Patient denies any fever, chills, nausea, vomiting, abdominal pain, shortness of breath or any other complaints. Patient has a scheduled appointment for a cardiac stress test in 2 days on 10/05/16. Time/Duration: Prior to Arrival Symptom Course: Improving Quality: Other Context: Home Past Medical History - Provider Review Nursing Documentation Reviewed: Yes - Infectious Disease Hx of Infectious Diseases: None - Tetanus Immunization Tetanus Immunization: Unknown - Past Medical History Past Medical History: No Previous - Cardiac Hx Cardiac Disorders: No Hx Hypertension: No - Pulmonary Hx Respiratory Disorders: No Hx Tuberculosis: No - Neurological HX Cerebrovascular Accident: No Hx Seizures: No Other/Comment: sciatic nerve - HEENT Hx HEENT Disorder: No - Renal Hx Renal Disorder: No - Endocrine/Metabolic Hx Endocrine Disorders: No - Hematological/Oncological Hx Cancer: No - Integumentary Hx Dermatological Disorder: No - Musculoskeletal/Rheumatological Hx Musculoskeletal Disorders: No - Gastrointestinal Hx Gastrointestinal Disorders: No - Genitourinary/Gynecological Hx Sexually Transmitted Diseases: No - Psychiatric Hx Depression: No Hx Emotional Abuse: No Hx Physical Abuse: No Hx Substance Use: Yes (marijuana) - Past Surgical History Past Surgical History: Non-Contributing - Surgical History Hx Musculoskeletal Surgery: No Hx Orthopedic Surgery: Yes (r rotator cuff) Other/Comment: back surgery - Anesthesia Hx Anesthesia: Yes Hx Anesthesia Reactions: No Hx Malignant Hyperthermia: No - Suicidal Assessment Feels Threatened In Home Enviroment: No Family/Social History - Physician Review Nursing Documentation Reviewed: Yes Family/Social History: No Known Family HX Smoking Status: Current Some Days Smoker Hx Alcohol Use: Yes Hx Substance Use: Yes (marijuana) Hx Substance Use Treatment: No Allergies/Home Meds Allergies/Adverse Reactions: Allergies No Known Allergies Allergy (Verified 10/03/17 10:39) Home Medications: Home Meds Medication Instructions Recorded Confirmed No Known Home Med 09/20/17 10/03/17 Review of Systems - Physician Review All systems were reviewed & negative as marked: Yes - Review of Systems Constitutional: absent: Fevers, Night Sweats Respiratory: absent: SOB Cardiovascular: Chest Pain Gastrointestinal: absent: Abdominal Pain, Nausea, Vomiting Physical Exam Vital Signs Reviewed: Yes Vital Signs Temp Pulse Resp BP Pulse Ox 10/03/17 10:38 98.4 F 76 18 176/108 H 100 Temperature: Afebrile Blood Pressure: Hypertensive Pulse: Regular Respiratory Rate: Normal Appearance: Positive for: Well-Appearing, Non-Toxic, Comfortable Pain Distress: None Mental Status: Positive for: Alert and Oriented X 3 - Systems Exam Head: Present: Atraumatic, Normocephalic Pupils: Present: PERRL Extroacular Muscles: Present: EOMI Conjunctiva: Present: Normal Mouth: Present: Moist Mucous Membranes Neck: Present: Normal Range of Motion Respiratory/Chest: Present: Clear to Auscultation, Good Air Exchange. No: Respiratory Distress, Accessory Muscle Use Cardiovascular: Present: Regular Rate and Rhythm, Normal S1, S2. No: Murmurs Abdomen: Present: Normal Bowel Sounds. No: Tenderness, Distention, Peritoneal Signs Back: Present: Normal Inspection Upper Extremity: Present: Normal Inspection. No: Cyanosis, Edema Lower Extremity: Present: Normal Inspection. No: Edema Neurological: Present: GCS=15, CN II-XII Intact, Speech Normal Skin: Present: Warm, Dry, Normal Color. 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 Patient notes his pain has improved since. Plan: -- Labs -- Aspirin -- Reassess and disposition Progress Notes: 10/03/17 12:18 pain free; BP 118/46; stable for d/c. all labs and old chart reviewed. - Lab Interpretations Lab Results: 10/03/17 11:30 10/03/17 11:30 Lab Results 10/03/17 11:30: Sodium 139, Potassium 4.1, Chloride 104, Carbon Dioxide 28, Anion Gap 11, BUN 13, Creatinine 0.9, Est GFR ( Amer) > 60, Est GFR (Non- Af Amer) > 60, Random Glucose 97, Calcium 9.9, Troponin I < 0.01 10/03/17 11:30: WBC 5.0, RBC 4.84, Hgb 14.4, Hct 41.4 L, MCV 85.5, MCH 29.8, MCHC 34.8, RDW 13.4, Plt Count 189, MPV 9.8, Gran % 54.5, Lymph % (Auto) 36.3 H , [place] % (Auto) 8.0 H, Eos % (Auto) 1.0 L, Baso % (Auto) 0.2, Gran # 2.71, Lymph # (Auto) 1.8, [place] # (Auto) 0.4, Eos # (Auto) 0.1, Baso # (Auto) 0.01 I have reviewed the lab results: Yes - Medication Orders Current Medication Orders: Discontinued Medications Aspirin (Aspirin) 325 mg PO STAT STA Stop: 10/03/17 10:52 Last Admin: 10/03/17 11:37 Dose: 325 mg Disposition/Present on Arrival - Present on Arrival Any Indicators Present on Arrival: No History of DVT/PE: No History of Uncontrolled Diabetes: No Urinary Catheter: No History of Decub. Ulcer: No History Surgical Site Infection Following: None - Disposition Have Diagnosis and Disposition been Completed?: Yes Diagnosis: Chest pain Disposition: HOME/ ROUTINE Disposition Time: 12:30 Condition: STABLE Discharge Instructions (ExitCare): Chest Pain (ED) Additional Instructions: stress test as scheduled this Forms: [employer] (Romansh)
[2017-10-03 11:52] LABS: BASO # 0.01 K/mm3 (0.0-2.0); BASO % 0.2 % (0.0-3.0); EOS # 0.1 (0.0-0.7); GRAN # 2.71 (1.4-6.5); GRAN % 54.5 % (50.0-68.0); HEMOGLOBIN 14.4 g/dL (14.0-18.0); LYMPH # 1.8 (1.2-3.4); LYMPH % 36.3 % (22.0-35.0); MEAN CELL VOLUME 85.5 fl (80.0-105.0); MEAN CORPUSCULAR HEMOGLOBIN 29.8 pg (25.0-35.0); MEAN CORPUSCULAR HGB CONC 34.8 g/dl (31.0-37.0); MEAN PLATELET VOLUME 9.8 fl (7.0-11.0); MONO # 0.4 (0.1-0.6); RBC 4.84 10^6/uL (3.5-6.1); RED CELL DISTRIBUTION WIDTH 13.4 % (11.5-14.5)
[2017-10-03 12:05] LABS: TROPONIN I < 0.01 ng/mL
[2017-10-03 12:12] LABS: BLOOD UREA NITROGEN 13 mg/dL (7-21); CALCIUM 9.9 mg/dL (8.4-10.5); GFR AFRICAN-AMERICAN > 60; GFR NON-AFRICAN AMERICAN > 60
[2017-10-03 12:36] VITALS: BP 132/83; PULSE 73; O2SAT 99
--- NOTE | 2017-10-04 08:49 | CARD ---
APPROVED REPORT EKG Measurement Heart [id number] <Conclusion> Sinus rhythm with frequent premature ventricular complexes Possible Inferior infarct, age undetermined
== END 2017-10-03 12:36 | disposition home or self-care (01) ==
LOC: ED 10:31
DX: R07.9 Chest pain, unspecified (principal)

== ENCOUNTER 2017-10-04 23:08 | Observation (INO) | payer BC ==
[2017-10-04 23:09] VITALS: BMI 38.7
--- NOTE | 2017-10-04 23:27 | ED PDOC ---
Arrival/HPI - General Time Seen by Provider: 10/04/17 23:10 Historian: Patient - History of Present Illness Narrative History of Present Illness (Text): 10/04/17 23:20 Sylvain Lester is a 57 year old male smoker, whose past medical history includes hyperlipidemia, who presents to the Emergency department complaining of mid-sternal chest pain today. Patient was seen in the Emergency department yesterday for similar complaints and discharged home. Patient reports he is scheduled for a stress test tomorrow. Patient takes Aspirin daily. Patient denies any fever, chills, shortness of breath, nausea, vomiting, diarrhea, urinary symptoms, back pain, neck pain, headache, dizziness, or any other complaints. PMD: Dr. Naveed Bell Symptom Onset: Gradual Symptom Course: Unchanged Activities at Onset: Light Context: Home Past Medical History - Provider Review Nursing Documentation Reviewed: Yes - Infectious Disease Hx of Infectious Diseases: None - Tetanus Immunization Tetanus Immunization: Unknown - Past Medical History Past Medical History: No Previous - Cardiac Hx Cardiac Disorders: No Hx Hypertension: No - Pulmonary Hx Respiratory Disorders: No Hx Tuberculosis: No - Neurological HX Cerebrovascular Accident: No Hx Seizures: No Other/Comment: sciatic nerve - HEENT Hx HEENT Disorder: No - Renal Hx Renal Disorder: No - Endocrine/Metabolic Hx Endocrine Disorders: No - Hematological/Oncological Hx Cancer: No - Integumentary Hx Dermatological Disorder: No - Musculoskeletal/Rheumatological Hx Musculoskeletal Disorders: No - Gastrointestinal Hx Gastrointestinal Disorders: No - Genitourinary/Gynecological Hx Sexually Transmitted Diseases: No - Psychiatric Hx Depression: No Hx Emotional Abuse: No Hx Physical Abuse: No Hx Substance Use: Yes (marijuana) - Past Surgical History Past Surgical History: Non-Contributing - Surgical History Hx Musculoskeletal Surgery: No Hx Orthopedic Surgery: Yes (r rotator cuff) Other/Comment: back surgery - Anesthesia Hx Anesthesia: Yes Hx Anesthesia Reactions: No Hx Malignant Hyperthermia: No - Suicidal Assessment Feels Threatened In Home Enviroment: No Family/Social History - Physician Review Nursing Documentation Reviewed: Yes Family/Social History: CAD/[place] Smoking Status: Current Some Days Smoker Hx Alcohol Use: Yes Hx Substance Use: Yes (marijuana) Hx Substance Use Treatment: No Allergies/Home Meds Allergies/Adverse Reactions: Allergies No Known Allergies Allergy (Verified 10/04/17 23:45) Home Medications: Home Meds Medication Instructions Recorded Confirmed No Known Home Med 09/20/17 10/03/17 Review of Systems - Physician Review All systems were reviewed & negative as marked: Yes - Review of Systems Constitutional: Normal. absent: Fevers Eyes: Normal ENT: Normal Respiratory: Normal. absent: SOB, Cough Cardiovascular: Chest Pain Gastrointestinal: Normal. absent: Abdominal Pain, Diarrhea, Nausea, Vomiting Genitourinary Male: Normal. absent: Dysuria, Frequency, Hematuria, Urinary Output Changes Musculoskeletal: Normal. absent: Back Pain, Neck Pain Skin: Normal. absent: Rash Neurological: Normal. absent: Headache, Dizziness Endocrine: Normal Hemo/Lymphatic: Normal Psychiatric: Normal Physical Exam Vital Signs Reviewed: Yes Vital Signs Temp Pulse Resp BP Pulse Ox 10/05/17 01:35 75 20 138/71 99 10/04/17 23:29 97.9 F 71 18 150/68 100 Temperature: Afebrile Blood Pressure: Normal Pulse: Regular Respiratory Rate: Normal Appearance: Positive for: Well-Appearing, Non-Toxic, Comfortable Pain Distress: None Mental Status: Positive for: Alert and Oriented X 3 - Systems Exam Head: Present: Atraumatic, Normocephalic Pupils: Present: PERRL Extroacular Muscles: Present: EOMI Conjunctiva: Present: Normal Mouth: Present: Moist Mucous Membranes Neck: Present: Normal Range of Motion Respiratory/Chest: Present: Clear to Auscultation, Good Air Exchange. No: Respiratory Distress, Accessory Muscle Use Cardiovascular: Present: Regular Rate and Rhythm, Normal S1, S2. No: Murmurs Abdomen: Present: Normal Bowel Sounds. No: Tenderness, Distention, Peritoneal Signs Back: Present: Normal Inspection Upper Extremity: Present: Normal Inspection. No: Cyanosis, Edema Lower Extremity: Present: Normal Inspection. No: Edema Neurological: Present: GCS=15, CN II-XII Intact, Speech Normal Skin: Present: Warm, Dry, Normal Color. No: Rashes Psychiatric: Present: Alert, Oriented x 3, Normal Insight, Normal Concentration Medical Decision Making ED Course and Treatment: 10/04/17 23:20 Impression: 57 year old male complaining of chest pain today. Plan: -- EKG -- Chest X-ray -- Labs, cardiac enzymes -- Urinalysis -- Aspirin -- Nitroglycerin -- Reassess and disposition Prior Visits: Notes and results from previous visits were reviewed. On 10/03/2017, pt was seen in the Emergency department for chest pain. Pt was d/ c home. Progress Notes: Reviewed EKG, sinus rhythm at 68 bpm. PVCs. Non-specific ST/T wave changes. 10/05/17 00:20 Chest X-ray reviewed, shows no acute processes. 10/05/17 00:[address] Yap, who is aware and agrees with plan. Accepts pt in to his service. Pt will go to Telemetry observation for chest pain. business services vice president notified. - Lab Interpretations Lab Results: 10/04/17 23:35 10/04/17 23:35 Lab Results 10/04/17 23:35: ESR 20 H 10/04/17 23:35: D-Dimer, Quantitative < 200 10/04/17 23:35: Sodium 141, Potassium 3.6, Chloride 104, Carbon Dioxide 25, Anion Gap 15, BUN 16, Creatinine 1.0, Est GFR ( Amer) > 60, Est GFR (Non- Af Amer) > 60, Random Glucose 120 H, Calcium 9.7, Magnesium 1.7, Total Bilirubin 0.3, AST 36, ALT 35, Alkaline Phosphatase 57, Lactate Dehydrogenase 424, Total Creatine Kinase 192, Troponin I < 0.01, Total Protein 6.8, Albumin 3.9, Globulin 2.9, Albumin/Globulin Ratio 1.3 10/04/17 23:35: WBC 6.0, RBC 4.75, Hgb 14.1, Hct 40.8 L, MCV 85.9, MCH 29.7, MCHC 34.6, RDW 13.3, Plt Count 195, MPV 9.5, Gran % 50.6, Lymph % (Auto) 37.5 H , [place] % (Auto) 9.5 H, Eos % (Auto) 2.2, Baso % (Auto) 0.2, Gran # 3.03, Lymph # (Auto) 2.2, [place] # (Auto) 0.6, Eos # (Auto) 0.1, Baso # (Auto) 0.01 I have reviewed the lab results: Yes - RAD Interpretation Radiology Orders: 10/04/17 23:46 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 [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 - EKG Interpretation Interpreted by ED Physician: Yes Type: 12 lead EKG - Medication Orders Current Medication Orders: Discontinued Medications Acetaminophen (Tylenol 325mg Tab) 650 mg PO Q6H PRN PRN Reason: Pain, moderate (4-7) Last Admin: 10/05/17 06:32 Dose: 650 mg MAR Pain/Vitals Document 10/05/17 06:32 CDE (Rec: 10/05/17 06:33 CDE [id number]) Presence of Pain Presence of Pain Yes Pain Scale Used Pain Scale Used Numeric Location Pain 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 Description Constant Intensity 6 Scale Used Numeric Aspirin (Ecotrin) 81 mg PO STAT STA Stop: 10/04/17 23:46 Last Admin: 10/04/17 23:54 Dose: 81 mg Aspirin (Aspirin Chewable) 81 mg PO DAILY LOLLY Atorvastatin Calcium (Lipitor) 20 mg PO STAT STA Stop: 10/05/17 01:30 Last Admin: 10/05/17 02:30 Dose: Not Given Non-Admin Reason: Patient Refused Enoxaparin Sodium (Lovenox) 40 mg SC Q12H LOLLY PRN Reason: Protocol Last Admin: 10/05/17 02:30 Dose: Not Given Non-Admin Reason: Patient Refused Metoprolol Succinate (Toprol Xl) 12.5 mg PO BID LOLLY Last Admin: 10/05/17 02:30 Dose: Not Given Non-Admin Reason: Patient Refused Nitroglycerin (Nitro-Bid 2% Oint) 1 ea TOP STAT STA Stop: 10/04/17 23:46 Last Admin: 10/04/17 23:54 Dose: 1 ea Pantoprazole Sodium (Protonix Ec Tab) 20 mg PO ACB [facility] - Scribe Statement The provider has reviewed the documentation as recorded by the Anatoliy Hernandez All medical record entries made by the Anatoliy were at my direction and personally dictated by me. I have reviewed the chart and agree that the record accurately reflects my personal performance of the history, physical exam, medical decision making, and the department course for this patient. I have also personally directed, reviewed, and agree with the discharge instructions and disposition. Disposition/Present on Arrival - Present on Arrival Any Indicators Present on Arrival: No History of DVT/PE: No History of Uncontrolled Diabetes: No Urinary Catheter: No History Surgical Site Infection Following: None - Disposition Have Diagnosis and Disposition been Completed?: Yes Diagnosis: Chest pain Disposition: HOSPITALIZED Disposition Time: 01:00 Condition: GOOD
[2017-10-04] MEDS ORDERED: Nitroglycerin 2% Ointment Foilpak UD TOP STA (23:45)
[2017-10-05] LABS: BASO # 0.01 K/mm3 (0.0-2.0); BASO % 0.2 % (0.0-3.0); EOS # 0.1 (0.0-0.7); EOS % 2.2 % (1.5-5.0); GRAN # 3.03 (1.4-6.5); GRAN % 50.6 % (50.0-68.0); HEMOGLOBIN 14.1 g/dL (14.0-18.0); LYMPH # 2.2 (1.2-3.4); LYMPH % 37.5 % (22.0-35.0); MEAN CELL VOLUME 85.9 fl (80.0-105.0); MEAN CORPUSCULAR HEMOGLOBIN 29.7 pg (25.0-35.0); MEAN CORPUSCULAR HGB CONC 34.6 g/dl (31.0-37.0); MEAN PLATELET VOLUME 9.5 fl (7.0-11.0); MONO # 0.6 (0.1-0.6); MONO % 9.5 % (1.0-6.0); RBC 4.75 10^6/uL (3.5-6.1); RED CELL DISTRIBUTION WIDTH 13.3 % (11.5-14.5)
[2017-10-05 00:43] LABS: TROPONIN I < 0.01 ng/mL
[2017-10-05 00:48] LABS: ALB/GLOB RATIO 1.3 (1.1-1.8); ALBUMIN 3.9 g/dL (3.0-4.8); ALT/SGPT 35 U/L (7-56); AST/SGOT 36 U/L (17-59); BLOOD UREA NITROGEN 16 mg/dL (7-21); CALCIUM 9.7 mg/dL (8.4-10.5); GFR AFRICAN-AMERICAN > 60; GFR NON-AFRICAN AMERICAN > 60; MAGNESIUM 1.7 mg/dL (1.7-2.2)
[2017-10-05] MEDS ORDERED: Metoprolol Succinate 25 mg XL Tab PO SCH (01:30)
[2017-10-05] MEDS ORDERED: Enoxaparin 40 mg Syringe SC SCH (01:30)
[2017-10-05 01:40] VITALS: RESP 20
[2017-10-05 02:02] LABS: URINE BILIRUBIN NEGATIVE (NEGATIVE); URINE BLOOD NEGATIVE (NEGATIVE); URINE GLUCOSE (UA) NEGATIVE (NEGATIVE); URINE LEUKOCYTE ESTERASE NEGATIVE Leu/uL (NEGATIVE); URINE NITRATE NEGATIVE (NEGATIVE); URINE PROTEIN NEGATIVE mg/dL (<30 mg/dL); URINE UROBILINOGEN 0.2 E.U./dL (<1 E.U./dL)
[2017-10-05 02:07] LABS: URINE APPEARANCE CLEAR (CLEAR); URINE COLOR YELLOW (YELLOW)
--- NOTE | 2017-10-05 02:21 | CP.PCM.HP ---
<Dev Jones - Last Filed: 10/05/17 02:18> History of Present Illness - History of Present Illness History of Present Illness: Rekha Jones PGY 1 H&P CC: Chest Pain HPI: Patient is a 57 year old -[place] male with past medical history that includes HLD who presents complaining of mid sternal chest pain. Patient indicates that 10PM this evening he began to experience 5/10, non-radiating, mid sternum pain. Patient reports having previous episodes of chest discomfort. Patient denies work up for chest pain as an outpatient. At onset patient reports he was sitting and smoking a cigarette. Patient denies taking anything to try and alleviate the symptoms. Patient denies nausea, vomiting, diaphoresis. Patient indicates at onset of episode he was having some difficulty breathing. Patient reports when he lays flat the pain worsens. Patient denies diaphoresis, shortness of breath, nausea, vomiting, fever, chills , diarrhea, constipation, weakness or dizziness. 12 point ROS otherwise mentioned in HPI is benign. PMH: HLD, Bulging of cervical discs PSH: Denies SOCHx: Tobacco: 0.5 PPD, ETOH: Denies, ID: THC daily, denies IVDA FMH: Mother HTN, DM, Pacemaker, Brother HTN, DM, Sister "Open heart surgery" as a teenager ALL: NKDA MEDS: Denies PMD Dr. Bell Present on Admission - Present on Admission Any Indicators Present on Admission: No Review of Systems - Review of Systems All systems: reviewed and no additional remarkable complaints except (as mentioned in HPI) Review of Systems: benign otherwise mentioned in HPI Past Patient History - Infectious Disease Hx of Infectious Diseases: None - Tetanus Immunizations Tetanus Immunization: Unknown - Past Social History Smoking Status: Current Some Days Smoker Alcohol: None Drugs: Cannabis - CARDIAC Hx Cardiac Disorders: No Hx Hypertension: No - PULMONARY Hx Respiratory Disorders: No Hx Tuberculosis: No - NEUROLOGICAL HX Cerebrovascular Accident: No Hx Seizures: No Other/Comment: sciatic nerve - HEENT Hx HEENT Problems: No - RENAL Hx Chronic Kidney Disease: No - ENDOCRINE/METABOLIC Hx Endocrine Disorders: No - HEMATOLOGICAL/ONCOLOGICAL Hx Cancer: No - INTEGUMENTARY Hx Dermatological Problems: No - MUSCULOSKELETAL/RHEUMATOLOGICAL Hx Musculoskeletal Disorders: No - GASTROINTESTINAL Hx Gastrointestinal Disorders: No - GENITOURINARY/GYNECOLOGICAL Hx Sexually Transmitted Disorders: No - PSYCHIATRIC Hx Depression: No Hx Emotional Abuse: No Hx Physical Abuse: No Hx Substance Use: Yes (marijuana) - SURGICAL HISTORY Hx Musculoskeletal Surgery: No Hx Orthopedic Surgery: Yes (r rotator cuff) Other/Comment: back surgery - ANESTHESIA Hx Anesthesia: Yes Hx Anesthesia Reactions: No Hx Malignant Hyperthermia: No Meds Allergies/Adverse Reactions: Allergies Allergy/AdvReac Type Severity Reaction Status Date / Time No Known Allergies Allergy Verified 10/04/17 23:45 Physical Exam - Constitutional Appears: Non-toxic, No Acute Distress - Head Exam Head Exam: ATRAUMATIC, NORMAL INSPECTION, NORMOCEPHALIC - Eye Exam Eye Exam: EOMI, PERRL - ENT Exam ENT Exam: Mucous Membranes Moist - Respiratory Exam Respiratory Exam: Clear to Auscultation Bilateral, NORMAL BREATHING PATTERN. absent: Rhonchi, Wheezes - Cardiovascular Exam Cardiovascular Exam: REGULAR RHYTHM, +S1, +S2. absent: Clicks, Rubs, Systolic Murmur - GI/Abdominal Exam GI & Abdominal Exam: Normal Bowel Sounds, Soft, Tenderness (mild left and mid epigastric tenderness ). absent: Distended, Firm, Guarding, Hernia, Rigid - Extremities Exam Extremities exam: Positive for: normal inspection. Negative for: calf tenderness, pedal edema, tenderness - Back Exam Back exam: NORMAL INSPECTION. absent: CVA tenderness (L), CVA tenderness (R) - Neurological Exam Neurological exam: Alert, CN II-XII Intact, Oriented x3 Additional comments: able to follow simple commands, move all four extremities past midline, motor and sensory grossly intact - Psychiatric Exam Psychiatric exam: Normal Affect, Normal Mood - Skin Skin Exam: Dry, Intact, Warm Results - Vital Signs Recent Vital Signs: Last Vital Signs Temp 97.9 F 10/04/17 23:29 Pulse 75 10/05/17 01:35 Resp 20 10/05/17 01:35 BP 138/71 10/05/17 01:35 Pulse Ox 99 10/05/17 01:35 - Labs Result Diagrams: 10/04/17 23:35 10/04/17 23:35 Labs: Laboratory Results - last 24 hr 10/04/17 10/04/17 10/05/17 23:35 23:35 01:44 WBC 6.0 RBC 4.75 Hgb 14.1 Hct 40.8 L MCV 85.9 MCH 29.7 MCHC 34.6 RDW 13.3 Plt Count 195 MPV 9.5 Gran % 50.6 Lymph % (Auto) 37.5 H Montgomery % (Auto) 9.5 H Eos % (Auto) 2.2 Baso % (Auto) 0.2 Gran # 3.03 Lymph # (Auto) 2.2 Montgomery # (Auto) 0.6 Eos # (Auto) 0.1 Baso # (Auto) 0.01 Sodium 141 Potassium 3.6 Chloride 104 Carbon Dioxide 25 Anion Gap 15 BUN 16 Creatinine 1.0 Est GFR ( Amer) > 60 Est GFR (Non-Af Amer) > 60 Random Glucose 120 H Calcium 9.7 Magnesium 1.7 Total Bilirubin 0.3 AST 36 ALT 35 Alkaline Phosphatase 57 Lactate Dehydrogenase 424 Total Creatine Kinase 192 Troponin I < 0.01 Total Protein 6.8 Albumin 3.9 Globulin 2.9 Albumin/Globulin Ratio 1.3 Urine Color Yellow Urine Appearance Clear Urine pH 6.0 Ur Specific Gilmer >= 1.030 Urine Protein Negative Urine Glucose (UA) Negative Urine Ketones Trace H Urine Blood Negative Urine Nitrate Negative Urine Bilirubin Negative Urine Urobilinogen 0.2 Ur Leukocyte Esterase Negative Assessment & Plan - Assessment and Plan (Free Text) Assessment: 57 year old male with past medical history of HLD who presents by private vehicle to ED complaining of chest pain. Patient EKG shows NSR, q wave in Lead III, absent ST segment elevation or depression, initial troponin negative. Patient admitted for further medical management and observation. Plan: 1. Chest Pain - Reproducible chest pain, negative initial troponin, EKG intrepreted by me showing NSR, Q wave in Lead III, frequwnt PVC - Troponin Q6H x2 - EKG Q6H x2 - ESR - D-dimer - 2D echocardiogram - Cardio consult, Dr. Ring 2. HLD - Lipitor 3. HTN - Metoprolol - Continue to monitor 4. Substance abuse - Hx of THC - f/u UDS DVT ppx: Lovenox GI ppx: Protonix Case and plan discussed and reviewed with attending - Date & Time Date: 10/05/17 Time: 02:23 <Vladimir Yap U - Last Filed: 10/05/17 10:13> Results - Vital Signs Recent Vital Signs: Last Vital Signs Temp 99.3 F 10/05/17 06:00 Pulse 63 10/05/17 06:00 Resp 20 10/05/17 06:00 BP 122/71 10/05/17 06:00 Pulse Ox 97 10/05/17 06:00 - Labs Result Diagrams: 10/04/17 23:35 10/04/17 23:35 Labs: Laboratory Results - last 24 hr 10/05/17 10/05/17 10/05/17 01:44 02:12 05:20 Troponin I 0.03 D Urine Color Yellow Urine Appearance Clear Urine pH 6.0 Ur Specific Gilmer >= 1.030 Urine Protein Negative Urine Glucose (UA) Negative Urine Ketones Trace H Urine Blood Negative Urine Nitrate Negative Urine Bilirubin Negative Urine Urobilinogen 0.2 Ur Leukocyte Esterase Negative Urine Opiates Screen Negative Urine Methadone Screen Negative Ur Barbiturates Screen Negative Ur Phencyclidine Scrn Negative Ur Amphetamines Screen Negative U Benzodiazepines Scrn Negative U Oth Cocaine Metabols Negative U Cannabinoids Screen Positive H Assessment & Plan - Assessment and Plan (Free Text) Plan: Patient seen and examined in room 375 but 1 Patient's vital signs diagnostic tests all reviewed EKG imaging labs all reviewed Assessment and plan Chest pain etiology undetermined Hypertension History of anemia History of multiple emergency room visits for chest pain History of signing out against medical advise History of right elbow osteoarthritis History of mild rhabdomyolysis History of bilateral bilateral shoulders rotator cuff surgery History of lumbar spine surgery Obesity with elevated body mass index of 37.3 History of poor compliance and noncompliance [employer] DEPENDANCE Patient admitted to telemetry with serial cardiac enzymes and serial EKGs Cardiology consultation ordered Patient started on chest pain ACS protocol Repeat EKG ordered Awaiting cardiology evaluation and recommendation Patient was seen and examined in room 375 but one patient is stating that he has a stress test scheduled in [place] at 2 PM today and wishes to leave the hospital Patient was explained about all the details of his medical conditions patient was advised against signing out AGAINST MEDICAL ADVICE but patient refuses to stay in the hospital and refuses to continue with the inpatient hospital care patient was explained about all the risks and consequences of signing out against medical advise name and language which patient acknowledges and understands
[2017-10-05 07:17] VITALS: BP 122/71; PULSE 63; TEMP 99.3; O2SAT 97
[2017-10-05] MEDS ORDERED: Pantoprazole 20 mg EC Tab PO SCH (07:30)
[2017-10-05 08:14] LABS: BARBITURATES, UR NEGATIVE (NEGATIVE); BENZODIAZEPINES, UR NEGATIVE (NEGATIVE); OPIATES, UR NEGATIVE (NEGATIVE); PHENCYCLIDINE, UR NEGATIVE (NEGATIVE)
--- NOTE | 2017-10-05 10:05 | RAD ---
HISTORY: Chest pain COMPARISON: 09/20/2017. FINDINGS: LUNGS: The lungs are well inflated and clear. PLEURA: No significant pleural effusion identified, no pneumothorax apparent. CARDIOVASCULAR: Normal. OSSEOUS STRUCTURES: No significant abnormalities. VISUALIZED UPPER ABDOMEN: Normal. OTHER FINDINGS: None. IMPRESSION: No active pulmonary disease.
--- NOTE | 2017-10-05 10:25 | CARD ---
APPROVED REPORT EKG Measurement Heart [id number] <Conclusion> Sinus rhythm with frequent premature ventricular complexes. Q in 3, Small Q AVF.
--- NOTE | 2017-10-05 10:36 | CP.PCM.PN ---
Subjective - Date & Time of Evaluation Date of Evaluation: 10/05/17 Time of Evaluation: 09:30 - Subjective Subjective: Patient seen and examined at bedside. Patient states he would like to leave against medical advice. Patient had his condition explained to him in laymen's terms along with possible risks of leaving the hospital. Patient was also made aware of the benefits of remaining in the hospital. Discussion of risks and benefits was witnessed by the nurse at bedside. All paperwork was appropriately signed by physician, nurse, and patient. Objective - Vital Signs/Intake and Output Vital Signs (last 24 hours): Temp Pulse Resp BP Pulse Ox 99.3 F 63 20 122/71 97 10/05/17 06:00 10/05/17 06:00 10/05/17 06:00 10/05/17 06:00 10/05/17 06:00 Intake and Output: 10/05/17 10/05/17 06:59 18:59 Intake Total 240 Balance 240 - Medications Medications: Current Medications Acetaminophen (Tylenol 325mg Tab) 650 mg PO Q6H PRN PRN Reason: Pain, moderate (4-7) Last Admin: 10/05/17 06:32 Dose: 650 mg Aspirin (Aspirin Chewable) 81 mg PO DAILY [facility] Enoxaparin Sodium (Lovenox) 40 mg SC Q12H LOLLY PRN Reason: Protocol Last Admin: 10/05/17 02:30 Dose: Not Given Metoprolol Succinate (Toprol Xl) 12.5 mg PO BID [facility] Last Admin: 10/05/17 02:30 Dose: Not Given Pantoprazole Sodium (Protonix Ec Tab) 20 mg PO ACB [facility] - Constitutional Appears: Non-toxic, No Acute Distress - Head Exam Head Exam: ATRAUMATIC, NORMAL INSPECTION, NORMOCEPHALIC - ENT Exam ENT Exam: Mucous Membranes Moist, Normal Exam - Respiratory Exam Respiratory Exam: Clear to Ausculation Bilateral, NORMAL BREATHING PATTERN. absent: Rales, Rhonchi, Wheezes - Cardiovascular Exam Cardiovascular Exam: RRR, +S1, +S2 - GI/Abdominal Exam GI & Abdominal Exam: Soft, Normal Bowel Sounds. absent: Tenderness - Extremities Exam Extremities Exam: Normal Inspection. absent: Calf Tenderness, Pedal Edema - Neurological Exam Neurological Exam: Alert, Awake, Oriented x3 - Psychiatric Exam Psychiatric exam: Normal Affect, Normal Mood - Skin Skin Exam: Intact, Normal Color, Warm
== END 2017-10-05 10:53 | disposition left against medical advice (07) ==
LOC: ED 23:08 → ERH 10-05 00:57 → 3RSO 10-05 01:55
PROVIDERS: ADMIT Internal Medicine; ATTEND Internal Medicine
DX: R07.89 Other chest pain (principal); E78.5 Hyperlipidemia, unspecified; I10 Essential (primary) hypertension; Z68.37 Body mass index [BMI] 37.0-37.9, adult; E66.9 Obesity, unspecified; F17.210 Nicotine dependence, cigarettes, uncomplicated; F12.90 Cannabis use, unspecified, uncomplicated; M19.021 Primary osteoarthritis, right elbow; Z91.19 Patient's noncompliance with other medical treatment and regimen; Z82.49 Family history of ischemic heart disease and other diseases of the circulatory system; Z83.3 Family history of diabetes mellitus
CPT/HCPCS: 36415; 71045; 80053; 81003; 82550; 83615; 83735; 84484; 85025; 85378; 85651; 93005; 99283; G0378; G0480

== ENCOUNTER 2017-10-19 23:58 | Emergency (ER) | payer BC ==
[2017-10-20 00:18] VITALS: BMI 38.0
[2017-10-20 00:22] VITALS: PULSE 77; RESP 16
--- NOTE | 2017-10-20 01:31 | ED PDOC ---
Arrival/HPI - General Chief Complaint: Chest Pain Time Seen by Provider: 10/20/17 01:15 Historian: Patient - History of Present Illness Narrative History of Present Illness (Text): 10/20/17 01:32 A 57 year old male, whose past medical history includes hyperlipidemia, presents to the emergency department complaining of sudden onset mid-chest discomfort about an hour ago. The patient states that he has experienced these symptoms before. He states that he had a stress test done this week and a surgical procedure done yesterday for his carpal tunnel. The patient states that the discomfort lasted for 15 minutes with associated dizziness and resolved on its own. He is currently asymptomatic. The patient also notes that the discomfort usually begins after he eats something sweet; tonight the patient ate chocolate and shortly after, his symptoms began. The patient denies fevers, chills, headache, shortness of breath, dyspnea on exertion, cough, abdominal pain, nausea, vomiting, diarrhea, back pain, neck pain, urinary/bowel changes, or any other complaint. PMD: Dr. Asher Martell Time/Duration: Other (This evening) Symptom Onset: Sudden Symptom Course: Resolved Activities at Onset: Rest, Light Context: Home Past Medical History - Provider Review Nursing Documentation Reviewed: Yes - Infectious Disease Hx of Infectious Diseases: None - Tetanus Immunization Tetanus Immunization: Unknown - Past Medical History Past Medical History: No Previous - Cardiac Hx Cardiac Disorders: No Hx Hypertension: No - Pulmonary Hx Respiratory Disorders: No Hx Tuberculosis: No - Neurological HX Cerebrovascular Accident: No Hx Seizures: No Other/Comment: sciatic nerve - HEENT Hx HEENT Disorder: No - Renal Hx Renal Disorder: No - Endocrine/Metabolic Hx Endocrine Disorders: No - Hematological/Oncological Hx Cancer: No - Integumentary Hx Dermatological Disorder: No - Musculoskeletal/Rheumatological Hx Musculoskeletal Disorders: No - Gastrointestinal Hx Gastrointestinal Disorders: No - Genitourinary/Gynecological Hx Sexually Transmitted Diseases: No - Psychiatric Hx Depression: No Hx Emotional Abuse: No Hx Physical Abuse: No Hx Substance Use: Yes (marijuana) - Past Surgical History Past Surgical History: Non-Contributing - Surgical History Hx Musculoskeletal Surgery: No Hx Orthopedic Surgery: Yes (r rotator cuff) Other/Comment: back surgery - Anesthesia Hx Anesthesia: Yes Hx Anesthesia Reactions: No Hx Malignant Hyperthermia: No - Suicidal Assessment Feels Threatened In Home Enviroment: No Family/Social History - Physician Review Nursing Documentation Reviewed: Yes Family/Social History: No Known Family HX Smoking Status: Current Some Days Smoker Hx Alcohol Use: Yes Frequency of alcohol use: Socially Hx Substance Use: Yes (marijuana) Hx Substance Use Treatment: No Allergies/Home Meds Allergies/Adverse Reactions: Allergies No Known Allergies Allergy (Verified 10/04/17 23:45) Home Medications: Home Meds Medication Instructions Recorded Confirmed No Known Home Med 09/20/17 10/20/17 Review of Systems - Physician Review All systems were reviewed & negative as marked: Yes - Review of Systems Constitutional: absent: Fevers, Night Sweats Respiratory: absent: SOB, Cough Cardiovascular: Chest Pain. absent: ARTHUR Gastrointestinal: absent: Abdominal Pain, Diarrhea, Nausea, Vomiting Genitourinary Male: absent: Urinary Output Changes Musculoskeletal: absent: Neck Pain, Joint Swelling Neurological: Dizziness. absent: Headache Physical Exam Vital Signs Reviewed: Yes Vital Signs Temp Pulse Resp BP Pulse Ox 10/20/17 01:45 97.8 F 77 16 123/70 99 10/20/17 00:18 98.2 F 77 16 152/94 H 100 Temperature: Afebrile Blood Pressure: Hypertensive Pulse: Regular Respiratory Rate: Normal Appearance: Positive for: Well-Appearing, Non-Toxic, Comfortable Pain Distress: None Mental Status: Positive for: Alert and Oriented X 3 - Systems Exam Head: Present: Atraumatic, Normocephalic Pupils: Present: PERRL Extroacular Muscles: Present: EOMI Conjunctiva: Present: Normal Mouth: Present: Moist Mucous Membranes Neck: Present: Normal Range of Motion Respiratory/Chest: Present: Clear to Auscultation, Good Air Exchange. No: Respiratory Distress, Accessory Muscle Use Cardiovascular: Present: Regular Rate and Rhythm, Normal S1, S2. No: Murmurs Abdomen: Present: Normal Bowel Sounds. No: Tenderness, Distention, Peritoneal Signs Back: Present: Normal Inspection Upper Extremity: Present: Normal Inspection. No: Cyanosis, Edema Lower Extremity: Present: Normal Inspection. No: Edema Neurological: Present: GCS=15, CN II-XII Intact, Speech Normal Skin: Present: Warm, Dry, Normal Color. No: Rashes Psychiatric: Present: Alert, Oriented x 3, Normal Insight, Normal Concentration Medical Decision Making ED Course and Treatment: 10/20/17 01:39 Impression: A 57 year old male presents to the emergency department complaining of mid- chest discomfort that lasted for 15 minutes this evening. Plan: -- EKG -- Labs -- Reassess and disposition Prior Visits: Notes and results from previous visits were reviewed. Patient was last seen in the emergency department on 10/04/17. The patient was treated for mid- sternal chest pain. The patient was hospitalized. Progress Notes: 10/20/17 01:15: Patient states that he feels normal at the moment. He notes that the episode lasted 15 minutes. He is currently not experiencing the mid- chest pain or dizziness. 10/20/17 01:28: The patient refused blood work. EKG: Ordered, reviewed, and independently interpreted the EKG. Rate : 75 BPM Rhythm : NSR Interpretation : Inferior infarct age undetermined. Leaving Against Medical Advice (AMA): The patient is choosing to leave against medical advice. I have personally explained to the patient that choosing to do so may result in permanent bodily harm or . I have discussed at great length that without further evaluation and monitoring there may be unforeseen circumstances and/or deterioration causing permanent bodily harm or as a result of their choice. The patient is alert, oriented, and shows the mental capacity to make clear decisions regarding the patients health care at this time. The patient continues to wish to leave against medical advice. In light of the patients decision to leave against medical advice, follow-up has been arranged and the patient is aware of the importance to following up as instructed. The patient has been advised that they should return to the emergency room immediately if they change their mind at any time, or if their condition begins to change or worsen in any way. - Scribe Statement The provider has reviewed the documentation as recorded by the Anatoliy Swartz Provider Scribe Attestation: All medical record entries made by the Leticiaibnatalie were at my direction and personally dictated by me. I have reviewed the chart and agree that the record accurately reflects my personal performance of the history, physical exam, medical decision making, and the department course for this patient. I have also personally directed, reviewed, and agree with the discharge instructions and disposition. Disposition/Present on Arrival - Present on Arrival Any Indicators Present on Arrival: No History of DVT/PE: No History of Uncontrolled Diabetes: No Urinary Catheter: No History of Decub. Ulcer: No History Surgical Site Infection Following: None - Disposition Have Diagnosis and Disposition been Completed?: Yes Diagnosis: Left against medical advice Disposition: AGAINST MEDICAL ADVICE Disposition Time: 01:29 Patient Plan: Discharge Condition: UNKNOWN Discharge Instructions (ExitCare): Leaving Against Medical Advice Additional Instructions: Mr Lester, I can't really tell you that pain was not coming from your heart without the cardiac isoenzymes. Please follow up with your doctors. I can't offer you any reassurance. Best- Dr. Waldemar Frederick Referrals: Tomeka Mckinley MD [Primary Care Provider] - Follow up with primary Forms: [employer] ([employer])
[2017-10-20 02:12] VITALS: BP 123/70; TEMP 97.8; O2SAT 99
--- NOTE | 2017-10-21 09:45 | CARD ---
APPROVED REPORT EKG Measurement Heart [id number] <Conclusion> Normal sinus rhythm Possible Inferior infarct, age undetermined RVCD No change
== END 2017-10-20 02:12 | disposition left against medical advice (07) ==
LOC: ED 23:58
DX: R07.89 Other chest pain (principal); Z53.21 Procedure and treatment not carried out due to patient leaving prior to being seen by health care provider